=== PATIENT | male | born 1985 | race Caucasian/White ===

== ENCOUNTER → 2017-11-19 | Outpatient (CLI) | payer OTHER | END | disposition home or self-care (01) | LOC: HKI 13:58 | DX: M25.511 Pain in right shoulder (principal) | CPT/HCPCS: 73030; 73030-RT ==

== ENCOUNTER → 2018-04-01 | Outpatient (CLI) | payer OTHER | END | disposition home or self-care (01) | LOC: HKI 14:05 | DX: M75.01 Adhesive capsulitis of right shoulder (principal) | CPT/HCPCS: Z7500 ==